=== PATIENT | female | born 1975 | race Caucasian/White ===

== ENCOUNTER 2023-12-08 12:56 | Day surgery (SDC) | payer BC ==
[2023-12-08 13:15] LABS: HCG URINE TEST NEGATIVE (NEGATIVE)
[2023-12-08] MEDS: Lactated Ringers 1,000 ML IV SCH (13:15)
[2023-12-08] MEDS ORDERED: Versed 2 MG/2 ML Injection ONE (14:02)
[2023-12-08] MEDS ORDERED: Xylocaine-Mpf 2% 5 Ml Vial ONE (14:02)
[2023-12-08] MEDS ORDERED: DIPRIVAN 200 MG/20 ML IV ONE ×2 (14:02→14:25)
[2023-12-08] MEDS ORDERED: GlucaGen 1 MG ONE (14:25)
[2023-12-08 15:06] VITALS: RESP 16; TEMP 97.7
[2023-12-08 15:21] VITALS: BP 130/82; PULSE 78; O2SAT 98
--- NOTE | 2023-12-09 10:29 | OP ---
SURGERY DATE/TIME: 12/08/2023 8079 - 2039 PREOPERATIVE DIAGNOSIS: Patient has a history of adenocarcinoma of the appendix in 2018. She is here for surveillance colonoscopy with no symptoms. POSTOPERATIVE DIAGNOSIS: Normal colon with healthy patent ileocolonic anastomosis. PROCEDURE: Colonoscopy. SURGEON: Jyothi Cameron MD ANESTHESIA: MAC. ESTIMATED BLOOD LOSS: Minimal. COMPLICATIONS: None. SPECIMENS: None. HISTORY: This is a 48-year-old female who presents for surveillance colonoscopy. She is not having any symptoms. She does have a history positive for adenocarcinoma of the appendix for which she underwent right hemicolectomy and has been following with Oncology. She understands the risks, benefits and alternatives. She would like to proceed with colonoscopy. She was seen on the day of the procedure. Her H and P and consent have been reviewed and confirmed with her. All questions have been answered to her satisfaction. DESCRIPTION OF PROCEDURE AND FINDINGS: She was then placed in the left lateral decubitus position. A complete time-out was performed. First, a rectal inspection and rectal exam were done, which were normal except for minor hemorrhoid tissue and slightly decreased sphincter tone. Outside of this, there were no other findings. The scope was then lubricated, gently inserted into the anus, and gently advanced to the level of the ileocolonic anastomosis. The anastomosis was widely patent. We entered the ileum for about 4 cm. This appeared to be normal. We then withdrew back into the junction of the colon and the ileum, and again this was very healthy. I did not see any signs of mass or recurrence. Again, this is widely patent. The scope was then carefully withdrawn, taking a circumferential view of the remainder of the colon. The prep was good. She did have spasm in the descending and sigmoid regions, and I did give her glucagon to help with the spasms. Then the scope was able to be fully removed. I did not see any masses or polyps. Everything looked excellent. At this time, I have discussed with her family a 3- to 5-year interval based on Oncology preferences for surveillance since she did have the adenocarcinoma of the appendix. She did have some spasms limiting the view of very small lesions, but we saw 90% of the mucosa. The patient tolerated the procedure very well. There were no immediate complications. She will be following up with me as an outpatient, and I did discuss with her family that she needs a colonoscopy sooner than the 3- to 5-year interval should she have any pain, bleeding, or change in bowel function. They understand, and they will call me sooner should she have any symptoms.
== END 2023-12-08 15:35 | disposition home or self-care (01) ==
LOC: SDC 12:56
PROVIDERS: ATTEND Surgery
DX: Z12.11 Encounter for screening for malignant neoplasm of colon (principal); Z85.068 Personal history of other malignant neoplasm of small intestine; K64.9 Unspecified hemorrhoids
CPT/HCPCS: 81025; J1610; J2250; J2704